=== PATIENT | male | born 1990 | race African-American/Black ===

== ENCOUNTER 2023-12-16 05:35 | Emergency (ER) | payer OTHER, SELFPAY ==
[2023-12-16 05:38] VITALS: BP 148/87; PULSE 99; RESP 20; TEMP 36.4; O2SAT 97
[2023-12-16 06:18] LABS: Eosinophils Percent Auto 0.8 % (0-4.4); Hematocrit 49.7 % (42.0-52.0); Hemoglobin 16.8 g/dL (14.0-18.0); Immature Granulocyte Absolute 0.02 K/mm3 (0.00-0.031); Immature Granulocyte Percent A 0.5 % (0-0.5); Lymphocytes Absolute Auto 1.39 K/mm3 (0.9-3.2); Lymphocytes Percent Auto 35.5 % (18.3-44.2); Mean Corpuscular HGB Conc 33.8 g/dl (32-36); Mean Corpuscular Hemoglobin 27.5 pg (26-34); Mean Corpuscular Volume 81.5 fl (80-100); Mean Platelet Volume 10.2 fl (7.4-10.4); Monocytes Absolute Auto 0.6 K/mm3 (0.1-0.6); Monocytes Percent Auto 16.4 % (2.6-8.5); Neutrophils Absolute Auto 1.8 K/mm3 (1.3-6.7); Neutrophils Percent Auto 45.8 % (45.5-73.1); Platelet Count Result 172 k/mm3 (150-375); Red Cell Distribution Width 13.8 % (11.5-14.5); White Blood Count 3.9 K/mm3 (4.5-10.0)
[2023-12-16 06:32] LABS: Alanine Aminotransferase 49 U/L (6-50); Albumin Level 4.4 g/dL (3.5-5.1); Alkaline Phosphatase 77 U/L (38-126); Anion Gap 5 mmol/L (4-12); Aspartate Amino Transferase 42 U/L (17-59); Bilirubin,Total 1.3 mg/dL (0.2-1.3); Blood Urea Nitrogen 13 mg/dL (9-20); Carbon Dioxide 24 mmol/L (22-30); Chloride 105 mmol/L (98-107); Estimated CRCL calculation 105 ml/min; Estimated Glomerular Filt Rate > 60; Glucose 100 mg/dL (65-110); Potassium 3.8 mmol/L (3.4-5.0); Sodium 134 mmol/L (137-145)
[2023-12-16 06:46] VITALS: BP 141/90; PULSE 94; RESP 15; O2SAT 97
[2023-12-16 06:54] LABS: Influenza A QL RT-PCR Negative (Negative); Influenza B QL RT-PCR Negative (Negative); RSV RNA, RT-PCR Negative (Negative); SARS-CoV-2 RNA PCR Negative (Negative)
[2023-12-16] MEDS: ACETAMINOPHEN 325 MG TABLET 650 MG PO (07:05)
[2023-12-16] MEDS: ONDANSETRON INJ 4 MG/2 ML VIAL IV PUSH (07:05)
[2023-12-16] MEDS: SODIUM CHLORIDE 0.9% IV 1,000 ML 999 ML IV CONT ×2 (07:05→08:00)
--- NOTE | 2023-12-16 07:25 | ED.ABDPAIN ---
HPI - Abdominal Pain General Chief Complaint: Abdominal Pain Stated Complaint: flu symptoms Time Seen by Provider: 12/16/23 06:55 History of Present Illness HPI narrative: Patient is a 33-year-old male who presents to the emergency department this morning complaining of nausea, vomiting and diarrhea. Patient states that symptoms started 2 days ago on Tuesday and states that it is more diarrhea than anything else. Patient denies any sharp abdominal pain, any recent illness, any fevers or chills or exposure to COVID or influenza. Patient states that he feels as though everything he eats he gets nauseous right away and has diarrhea. He denies any sick contacts at home or any similar symptoms in the past. Patient is denying any urinary symptoms including dysuria or hematuria. He admits to mild headache but denies any lightheadedness, dizziness, focal weakness, numbness and tingling. There are no other modifying, alleviating, or precipitating factors at this time. Related Data Allergies Allergy/AdvReac Type Severity Reaction Status Date / Time No Known Allergies Allergy Verified 12/16/23 06:06 Review of Systems Review of Systems: All systems are reviewed and are negative unless stated otherwise in the HPI. Exam Narrative: General: Alert, awake, afebrile, in no acute distress. HEENT: PERRL, no rhinorrhea, no post nasal drip, oropharynx clear. Neck: Trachea midline, no JVD, no lymphadenopathy. Cardiovascular: Regular rate and rhythm, no murmurs, rubs or gallops, no peripheral edema. Respiratory: Clear to auscultation bilaterally, no tachypnea, no wheezing, no rhonchi, no rubs, no respiratory distress. Abdomen: Soft, nontender, nondistended, no rebound, no guarding, no peritoneal signs. Musculoskeletal: No joint swelling or deformity, normal muscle tone. Skin: No rashes or petechia, no signs of infection. Psychiatric: Alert and oriented, normal behavior and judgment for situation. Neurological: Alert and oriented to person, place, and time. Follows all commands. No focal deficits, speech is clear and fluent. Course Vital Signs Vital signs: Vital Signs Temperature 97.6 F 12/16/23 05:38 Pulse Rate 99 12/16/23 05:38 Respiratory Rate 20 12/16/23 05:38 Blood Pressure 148/87 H 12/16/23 05:38 Pulse Oximetry 97 12/16/23 05:38 Oxygen Delivery Room Air 12/16/23 05:38 Temperature 97.6 F 12/16/23 05:38 Pulse Rate 94 12/16/23 06:46 Respiratory Rate 15 12/16/23 06:46 Blood Pressure 141/90 H 12/16/23 06:46 Pulse Oximetry 97 12/16/23 06:46 Oxygen Delivery Room Air 12/16/23 05:38 MDM - Abdominal Pain MDM Narrative Medical decision making narrative: The patient was evaluated by myself in the emergency department. History is obtained from patient who is an independent historian and physical exam was performed. External medical records were reviewed at this time. IV was established and pertinent tests were ordered. Patient was administered 2 L of IV fluid bolus with normal saline. Laboratory results obtained revealing no acute process. Differential diagnosis considerations include acute viral syndrome, gastroenteritis an infectious diarrhea. Comorbidities impacting this visit include none. I have evaluated and discussed social determinants of health with the patient that could potentially impact subsequent diagnosis and treatment plans. On repeat assessment of the patient, reevaluation revealed that the patient is doing well and is in no acute distress. Patient symptoms have improved since he arrived to our emergency department. Repeat vital signs were all reviewed and noted to be stable. Differential diagnosis and treatment plan were discussed with the patient at bedside. Patient agrees with discussion and after shared medical decision making agrees with discharge. All questions were answered to the patient's satisfaction. Patient will follow up with his PCP in 3-5 days. Patien
[2023-12-16 08:00] VITALS: BP 114/77; PULSE 72; RESP 16; O2SAT 98
[2023-12-16 09:00] VITALS: BP 118/79; PULSE 67; RESP 16; O2SAT 96
== END 2023-12-16 09:30 | disposition home or self-care (01) ==
PROVIDERS: Emergency Provider Emergency Medicine
DX: K52.9 Noninfective gastroenteritis and colitis, unspecified (principal); Z20.822 Contact with and (suspected) exposure to COVID-19
CPT/HCPCS: 36415; 80053; 85025; 87637; 96361; 96374; 99284; A9270; J2405; J7030